=== PATIENT | female | born 1980 | race Caucasian/White ===

== ENCOUNTER 2022-07-05 04:59 | Emergency (ER) | payer MEDICAID ==
[~2022-07-05] VITALS: Ht 157.5 cm; Wt 75.0 kg
[2022-07-05] MEDS ORDERED: FLUORESCEIN SODIUM 1 MG STRIP ONE (08:12)
[2022-07-05] MEDS ORDERED: GENTAMICIN SULFATE 0.3% OPHTHALMIC SOLUTION 5 ML OU ONE (08:15)
[2022-07-05] MEDS ORDERED: PROPARACAINE HCL 0.5% 15 ML OPHTHALMIC SOLUTION OU ONE (08:15)
[2022-07-05] MEDS ORDERED: ERYTHROMYCIN 0.5% 3.5 GM TUBE OPHTHALMIC OINTMENT OU ONE (08:15)
[2022-07-05 08:35] VITALS: BP 131/76
== END 2022-07-05 09:04 | disposition home or self-care (01) ==
LOC: EMS 05:01
DX: H10.021 Other mucopurulent conjunctivitis, right eye (principal); F17.210 Nicotine dependence, cigarettes, uncomplicated
CPT/HCPCS: 99283